=== PATIENT | male | born 1955 | race Caucasian/White ===

== ENCOUNTER 2016-08-14 05:44 | Inpatient (IN) | payer SELFPAY ==
[~2016-08-14] VITALS: Ht 190.5 cm; Wt 102.5 kg
[2016-08-14 07:02] LABS: Basophils # (auto) 0 uL; Basophils % (auto) 0.4 % (0.0-2.0); Eosinophils # (auto) 0.1 uL; Eosinophils % (auto) 1.1 % (0.0-7.0); Hematocrit 41.2 % (41.0-53.0); Hemoglobin 13.7 g/dL (13.5-17.5); Lymphocytes # (auto) 1.6 uL; Lymphocytes % (auto) 17.5 % (10.0-50.0); Mean Corpuscular Hemoglobin 27.5 pg (28.0-32.0); Mean Corpuscular Hgb Conc. 33.2 g/dL (32.0-36.0); Mean Corpuscular Volume 82.9 fL (80.0-100.0); Mean Platelet Volume 7.6 fL (7.4-10.4); Monocytes # (auto) 0.9 uL; Monocytes % (auto) 9.7 % (0.0-12.0); Neutrophils # (auto) 6.4 uL; Neutrophils % (auto) 71.3 % (37.0-80.0); Platelet Count (auto) 239 10^3/uL (140-450); Red Cell Distribution Width 15.4 % (11.6-16.0); White Blood Cell 8.9 10^3/uL (4.4-10.8)
[2016-08-14 07:21] LABS: Albumin 3.6 g/dL (3.4-5.0); Bilirubin, Total 0.7 mg/dL (0.2-1.0); Calcium 8.2 mg/dL (8.5-10.1); Magnesium 2.3 mg/dL (1.6-2.6); Potassium 4.1 mmol/L (3.5-5.1); Total Protein 7.1 g/dL (6.4-8.2)
[2016-08-14 08:00] LABS: INR 1.05 (0.9-1.15); Partial Thromboplastin Time 25.7 sec (22.64-33.71); Prothrombin Time 10.8 sec (9.37-12.3)
[2016-08-14] MEDS ORDERED: SODIUM CHLORIDE 0.9% 1,000 ML IV ONE (08:16)
[2016-08-14] MEDS ORDERED: ONDANSETRON HCL 4 MG/2 ML VIAL IV ONE (08:30)
[2016-08-14] MEDS ORDERED: ASPirin 81 mg TAB PO ONE (08:30)
[2016-08-14] MEDS ORDERED: MORPHINE SULFATE 4 MG/ML SYRG IV ONE (08:30)
[2016-08-14] MEDS ORDERED: IODIXANOL 320MG/ML 100ML BTL IV ONE ×2 (10:29→12:13)
[2016-08-14] MEDS ORDERED: LIDOCAINE 2%HCL (LOCAL ANESTH.) INJ 20ML MDV ONE ×2 (10:30→13:26)
[2016-08-14] MEDS ORDERED: ANGIOMAX 250 MG VIAL IV ONE (11:58)
[2016-08-14] MEDS ORDERED: MIDAZOLAM HCL 1MG/1ML-2 ML VIAL ONE (11:59)
[2016-08-14] MEDS ORDERED: EPTIFIBATIDE INJ (2MG/ML) 10ML VIAL IV ONE (11:59)
[2016-08-14] MEDS ORDERED: SODIUM CHL 0.9% 0 ML ONE (11:59)
[2016-08-14] MEDS ORDERED: fentaNYL CITRATE 100 MCG/2 ML VL ONE (11:59)
[2016-08-14] MEDS ORDERED: HYDROmorphone HCL 2 MG/ML VL ONE (13:24)
[2016-08-14] MEDS ORDERED: MORPHINE SULF INJ 2 MG/ML SYRINGE 1ML IV PRN (13:30)
[2016-08-14] MEDS ORDERED: CHLORHEXIDINE 0.12% ORAL rinse 473ML MT ONE (13:30)
[2016-08-14] MEDS ORDERED: ceFAZolin 1GM 2 GM in D5W 5% 50 ML IV ONE (13:30)
[2016-08-14] MEDS ORDERED: VANCOMYCIN 1GM/250ML D5W 250 ML IV ONE (13:30)
[2016-08-14] MEDS ORDERED: ACCU-CHEK COMFORT CURVE STRIP VI ONE (13:30)
[2016-08-14] MEDS ORDERED: CHLORHEXIDINE 4% TOPICAL soln 473ML TOP ONE (13:30)
[2016-08-14] MEDS ORDERED: NITROGLYCERIN 0.4 MG SL TAB SL PRN (13:30)
[2016-08-14] MEDS ORDERED: HEPARIN SODIUM (PORCINE) 5000 UNITS/ML 1ML VIAL ONE (13:36)
[2016-08-14] MEDS ORDERED: ZOLPIDEM TARTRATE 5 MG TAB PO PRN (14:15)
[2016-08-14] MEDS ORDERED: ALPRAZolam 0.25 MG TAB PO PRN (14:15)
[2016-08-14] MEDS ORDERED: FAMOTIDINE (10MG/ML) 2ML VL IV ONE (14:30)
[2016-08-14] MEDS ORDERED: HEPARIN DRIP/D5W 100UNITS/ML 250 ML IV SCH (14:32)
[2016-08-14 14:40] LABS: Basophils # (auto) 0.1 uL; Basophils % (auto) 0.8 % (0.0-2.0); Eosinophils # (auto) 0.1 uL; Eosinophils % (auto) 1.1 % (0.0-7.0); Hematocrit 39.1 % (41.0-53.0); Lymphocytes # (auto) 2.1 uL; Mean Corpuscular Hgb Conc. 33.3 g/dL (32.0-36.0); Mean Corpuscular Volume 84.1 fL (80.0-100.0); Mean Platelet Volume 7.7 fL (7.4-10.4); Monocytes # (auto) 1.1 uL; Monocytes % (auto) 12.7 % (0.0-12.0); Neutrophils # (auto) 4.9 uL; Neutrophils % (auto) 60.4 % (37.0-80.0); Platelet Count (auto) 198 10^3/uL (140-450); Red Cell Distribution Width 13.9 % (11.6-16.0); White Blood Cell 8.3 10^3/uL (4.4-10.8)
[2016-08-14 14:46] LABS: Partial Thromboplastin Time 60.8 sec (22.64-33.71); Prothrombin Time 11.9 sec (9.37-12.3)
[2016-08-14 14:48] LABS: INR 1.16 (0.9-1.15)
[2016-08-14] MEDS: HEPARIN DRIP/D5W 100UNITS/ML 250 ML IV SCH (15:00)
[2016-08-14 15:01] LABS: Albumin 3.2 g/dL (3.4-5.0); BUN/Creatinine Ratio 8.9; Bilirubin, Total 1.1 mg/dL (0.2-1.0); Calcium 7.9 mg/dL (8.5-10.1); Potassium 4.1 mmol/L (3.5-5.1); Total Protein 6.4 g/dL (6.4-8.2)
[2016-08-14] MEDS ORDERED: MUPIROCIN 2% OINT 22GM TOP SCH ×2 (21:00)
[2016-08-14 21:30] VITALS: BP 121/74
[2016-08-14 22:00] VITALS: BP 127/91
[2016-08-14] MEDS: ATORVASTATIN 20 MG TAB PO SCH (22:00)
[2016-08-14] MEDS: METOPROLOL TARTRATE 25 MG TAB PO SCH (22:00)
[2016-08-14] MEDS: FAMOTIDINE (10MG/ML) 2ML VL IV SCH (22:00)
[2016-08-14 22:09] VITALS: BP 121/74
[2016-08-14 22:38] LABS: BUN/Creatinine Ratio 10.2; Calcium 8.1 mg/dL (8.5-10.1); Potassium 3.9 mmol/L (3.5-5.1)
[2016-08-14 23:30] VITALS: BP 97/64
[2016-08-15] VITALS (75 sets, daily range): BP systolic 85–110; BP diastolic 39–71
[2016-08-15] MEDS: HYDROmorphone HCL 2 MG/ML VL IV PRN ×3 (01:29→22:11)
[2016-08-15 03:46] LABS: Basophils # (auto) 0 uL; Basophils % (auto) 0.3 % (0.0-2.0); Eosinophils # (auto) 0 uL; Eosinophils % (auto) 0.3 % (0.0-7.0); Hematocrit 38.3 % (41.0-53.0); Hemoglobin 12.6 g/dL (13.5-17.5); Lymphocytes # (auto) 1.5 uL; Lymphocytes % (auto) 14.1 % (10.0-50.0); Mean Corpuscular Hemoglobin 27.4 pg (28.0-32.0); Monocytes # (auto) 1.6 uL; Monocytes % (auto) 14.5 % (0.0-12.0); Neutrophils # (auto) 7.7 uL; Neutrophils % (auto) 70.8 % (37.0-80.0); Platelet Count (auto) 214 10^3/uL (140-450); Red Cell Distribution Width 15.1 % (11.6-16.0); White Blood Cell 10.9 10^3/uL (4.4-10.8)
[2016-08-15 03:58] LABS: Calcium 8.2 mg/dL (8.5-10.1); Potassium 3.8 mmol/L (3.5-5.1)
[2016-08-15 04:03] LABS: Partial Thromboplastin Time 60.1 sec (22.64-33.71); Prothrombin Time 11.9 sec (9.37-12.3)
[2016-08-15 04:15] LABS: INR 1.16 (0.9-1.15)
[2016-08-15 09:37] LABS: Partial Thromboplastin Time 43.5 sec (22.64-33.71)
[2016-08-15 09:41] LABS: INR 1.17 (0.9-1.15)
[2016-08-15] MEDS: METOPROLOL TARTRATE 25 MG TAB PO SCH ×2 (10:00→22:00)
[2016-08-15] MEDS: HEPARIN DRIP/D5W 100UNITS/ML 250 ML IV SCH (10:00)
[2016-08-15 10:25] LABS: Urine Bilirubin Negative (Negative); Urine Color Yellow (Yellow); Urine Glucose Normal (Normal); Urine Ketone Negative (Negative); Urine Mucus FEW (None Seen); Urine Nitrite Negative (Negative); Urine RBC 1 /hpf (0 - 3); Urine Sperm PRESENT /hpf (None Seen); Urine Urobilinogen Normal (Negative)
[2016-08-15 10:27] LABS: Urine Blood 1+ /uL (Negative)
[2016-08-15] MEDS: FAMOTIDINE (10MG/ML) 2ML VL IV SCH ×2 (11:22→22:12)
[2016-08-15] MEDS ORDERED: ASPirin 81 mg TAB PO ONE (11:30)
[2016-08-15] MEDS ORDERED: POTASSIUM CHL 10% (20 MEQ/15ML) ORAL SOLN ONE (12:33)
[2016-08-15] MEDS ORDERED: POTASSIUM CHL 10% (20 MEQ/15ML) ORAL SOLN PO ONE (12:45)
[2016-08-15 16:48] LABS: Partial Thromboplastin Time 43.6 sec (22.64-33.71); Prothrombin Time 12.3 sec (9.37-12.3)
[2016-08-15 16:53] LABS: INR 1.19 (0.9-1.15)
[2016-08-15] MEDS: MUPIROCIN 2% OINT 22GM TOP SCH (21:00)
[2016-08-15] MEDS: ATORVASTATIN 20 MG TAB PO SCH (22:12)
[2016-08-15 22:43] LABS: Partial Thromboplastin Time 50.9 sec (22.64-33.71)
[2016-08-15 22:44] LABS: INR 1.23 (0.9-1.15); Prothrombin Time 12.7 sec (9.37-12.3)
[2016-08-15] MEDS ORDERED: CHLORHEXIDINE 0.12% ORAL rinse 473ML MT ONE (23:31)
[2016-08-16] VITALS (70 sets, daily range): BP systolic 23–255; BP diastolic 10–255
[2016-08-16] MEDS: HEPARIN DRIP/D5W 100UNITS/ML 250 ML IV SCH
[2016-08-16] MEDS ORDERED: CHLORHEXIDINE 4% TOPICAL soln 473ML TOP ONE (02:00)
[2016-08-16 04:05] LABS: Basophils # (auto) 0 uL; Basophils % (auto) 0.2 % (0.0-2.0); Eosinophils # (auto) 0.1 uL; Eosinophils % (auto) 0.8 % (0.0-7.0); Hematocrit 38.4 % (41.0-53.0); Hemoglobin 12.4 g/dL (13.5-17.5); Lymphocytes # (auto) 2.4 uL; Lymphocytes % (auto) 22.7 % (10.0-50.0); Mean Corpuscular Hemoglobin 27.1 pg (28.0-32.0); Mean Corpuscular Hgb Conc. 32.3 g/dL (32.0-36.0); Mean Platelet Volume 7.8 fL (7.4-10.4); Monocytes # (auto) 1.4 uL; Monocytes % (auto) 13.8 % (0.0-12.0); Neutrophils # (auto) 6.5 uL; Neutrophils % (auto) 62.5 % (37.0-80.0); Platelet Count (auto) 216 10^3/uL (140-450); Red Cell Distribution Width 14.7 % (11.6-16.0); White Blood Cell 10.5 10^3/uL (4.4-10.8)
[2016-08-16 04:26] LABS: Albumin 2.9 g/dL (3.4-5.0); BUN/Creatinine Ratio 14.6; Bilirubin, Total 0.8 mg/dL (0.2-1.0); Magnesium 2.3 mg/dL (1.6-2.6); Potassium 3.9 mmol/L (3.5-5.1); Total Protein 6.4 g/dL (6.4-8.2)
[2016-08-16 05:05] LABS: INR 1.17 (0.9-1.15)
[2016-08-16] MEDS: HYDROmorphone HCL 2 MG/ML VL IV PRN (05:05)
[2016-08-16] MEDS: MUPIROCIN 2% OINT 22GM TOP SCH (05:16)
[2016-08-16] MEDS ORDERED: CHLORHEXIDINE 0.12% ORAL rinse 473ML MT ONE (06:00)
[2016-08-16] MEDS ORDERED: HEPARIN 1,000 UNITS/ml 1ML VIAL ONE (06:16)
[2016-08-16] MEDS ORDERED: ceFAZolin 1GM VL ONE ×2 (06:16→10:44)
[2016-08-16] MEDS ORDERED: PAPAVERINE HCL 60 MG/2 ML 2ML VIAL ONE (06:16)
[2016-08-16] MEDS ORDERED: NEOMYCIN-BACITRACIN-POLYM 15GM TOP OINT TOP ONE (06:16)
[2016-08-16] MEDS ORDERED: ALBUMIN 25% 300 ML IV ONE (06:48)
[2016-08-16] MEDS ORDERED: PLASMA-LYTE A pH7.4 8,000 ML INJ ONE (06:50)
[2016-08-16] MEDS ORDERED: PHENYLEPHRINE INJ 20 MG in NS 0.9% 248 ML IV ONE (07:00)
[2016-08-16] MEDS ORDERED: VANCOMYCIN 1GM/250ML D5W 250 ML IV ONE (07:00)
[2016-08-16] MEDS ORDERED: ceFAZolin 1GM 2 GM in D5W 5% 50 ML IV ONE (07:00)
[2016-08-16] MEDS ORDERED: EPINEPHrine HCL INJECTION 4 MG in D5W 5% 250 ML IV ONE (07:00)
[2016-08-16] MEDS ORDERED: AMINOCAPROIC ACID 5 GM in SODIUM CHL 0.9% 250 ML IV ONE (07:00)
[2016-08-16] MEDS ORDERED: ACCU-CHEK COMFORT CURVE STRIP VI ONE (07:00)
[2016-08-16] MEDS ORDERED: VASOPRESSIN 50 UNITS in SODIUM CHL 0.9% 247.5 ML IV ONE (07:00)
[2016-08-16] MEDS ORDERED: ceFAZolin 1GM 2 GM in D5W 5% 100 ML IV ONE (07:00)
[2016-08-16] MEDS ORDERED: HEPARIN 30000 UNITS in SODIUM CHLORIDE 0.9% 1000 ML IV ONE (07:00)
[2016-08-16] MEDS ORDERED: AMINOCAPROIC ACID 10 GM in SODIUM CHL 0.9% 100 ML IV ONE (07:00)
[2016-08-16] MEDS ORDERED: InsuLIN R (HUMAN) 100 UNITS in SODIUM CHL 0.9% 99 ML IV ONE (07:00)
[2016-08-16] MEDS ORDERED: fentaNYL CITRATE 10 ML ONE (07:19)
[2016-08-16] MEDS ORDERED: MIDAZOLAM HCL 1MG/1ML-2 ML VIAL ONE (07:19)
[2016-08-16] MEDS ORDERED: ALBUMIN 25% 100 ML IV ONE ×2 (07:23)
[2016-08-16] MEDS ORDERED: ROCURONIUM 10MG/ML 10ML VIAL IV ONE ×2 (07:37→09:38)
[2016-08-16] MEDS ORDERED: VANCOMYCIN HCL 1000 MG VL ONE (07:50)
[2016-08-16] MEDS ORDERED: CALCIUM CHLOR(10%) 100MG/ML 10ML SYRINGE IV ONE ×3 (07:57→13:27)
[2016-08-16] MEDS ORDERED: NITROGLYCERIN 50MG/250ML 250 ML IV ONE ×2 (07:57→12:24)
[2016-08-16] MEDS ORDERED: AMINOCAPROIC ACID 5 GM/20 ML IV ONE (07:58)
[2016-08-16] MEDS ORDERED: PROPOFOL 100 ML IV ONE ×3 (08:49→12:25)
[2016-08-16] MEDS ORDERED: ASPirin 81 mg TAB PO SCH (10:00)
[2016-08-16] MEDS ORDERED: PHENYLEPHRINE IV 250 ML IV ONE ×2 (10:42→12:23)
[2016-08-16] MEDS ORDERED: ADENOSINE 6 MG/2 ML INJ IV ONE ×4 (10:43→13:27)
[2016-08-16] MEDS ORDERED: LIDOCAINE HCL 100 MG/5ML (2%) SYRG INJ IV ONE ×2 (10:44→13:27)
[2016-08-16] MEDS ORDERED: PROPOFOL 200 ML IV ONE (10:44)
[2016-08-16] MEDS ORDERED: POTASSIUM CHL 20MEQ/100ML 200 ML IV ONE (10:44)
[2016-08-16] MEDS ORDERED: PROPOFOL 10 MG/ML 20 ML IV ONE (10:45)
[2016-08-16] MEDS ORDERED: SODIUM BICARBONATE 8.4% INJ 50ML SYRINGE ONE ×3 (11:37→12:24)
[2016-08-16] MEDS ORDERED: AMIODARONE HCL (50 MG/ ML) 3 ML VIAL IV ONE ×2 (11:55→12:23)
[2016-08-16] MEDS ORDERED: AMIODARONE HCL 900 MG in DEXTROSE 500 ML IV STA (12:02)
[2016-08-16] MEDS ORDERED: NICARDIPINE 25MG/250ML BAG KIT 250 ML IV ONE (12:23)
[2016-08-16] MEDS ORDERED: MAGNESIUM SULFATE 1GM/100ML 300 ML IV ONE (12:23)
[2016-08-16] MEDS ORDERED: DOBUTamine 1000MCG/ML 250 ML IV ONE (12:23)
[2016-08-16] MEDS ORDERED: DOPamine 1600MCG/ML 250 ML IV ONE (12:23)
[2016-08-16] MEDS ORDERED: MILRINONE 20MG/100ML 100 ML IV ONE (12:24)
[2016-08-16] MEDS ORDERED: ALBUMIN 5% 750 ML IV ONE (12:24)
[2016-08-16] MEDS ORDERED: NOREPINEPHRINE BITARTRATE 250 ML IV ONE (12:24)
[2016-08-16] MEDS ORDERED: POTASSIUM CHL 20MEQ/100ML 300 ML IV ONE (12:24)
[2016-08-16] MEDS ORDERED: VASOPRESSIN 20 UNIT/ML ONE (12:26)
[2016-08-16] MEDS ORDERED: MANNITOL 20% SOLN 100 gm/500ml BAG IV ONE (13:27)
[2016-08-16] MEDS ORDERED: SODIUM BICARBONATE 8.4 % INJ 50ML VIAL IV ONE (13:27)
[2016-08-16] MEDS ORDERED: PHENYLEPHRINE HCL 10 MG/ML VL IV ONE (13:27)
[2016-08-16] MEDS ORDERED: MAGNESIUM SULF 50% 40 MEQ/10 ML VL IV ONE (13:27)
[2016-08-16] MEDS ORDERED: POTASSIUM CHL 2MEQ/ML 20ML IV ONE (13:27)
[2016-08-16] MEDS ORDERED: AMINOCAPROIC ACID 5 GM/20 ML VL IV ONE (13:27)
[2016-08-16] MEDS ORDERED: DEXAMETHASONE SODIUM PHOSP 120 MG/30ml VIAL IV ONE (13:27)
[2016-08-16] MEDS ORDERED: INSULIN DRIP 100 UNIT/100ML 100 ML IV SCH ×2 (13:57)
[2016-08-16] MEDS ORDERED: NITROGLYCERIN 50MG/250ML 250 ML IV SCH (13:57)
[2016-08-16] MEDS ORDERED: ONDANSETRON HCL 4 MG/2 ML VIAL IV PRN (14:00)
[2016-08-16] MEDS ORDERED: MORPHINE SULFATE 4 MG/ML SYRG IV PRN (14:00)
[2016-08-16] MEDS: ACCU-CHEK COMFORT CURVE STRIP VI SCH ×10 (14:00→23:15)
[2016-08-16] MEDS ORDERED: DEXTROSE (50%) 50ML SYRG IV PRN (14:00)
[2016-08-16] MEDS ORDERED: METOCLOPRAMIDE HCL 5MG/ml INJ 2ml VIAL IV PRN (14:00)
[2016-08-16] MEDS ORDERED: MAGNESIUM SULFATE 1GM/100ML 100 ML IV PRN (14:00)
[2016-08-16] MEDS ORDERED: SODIUM BICARBONATE 8.4% INJ 50ML SYRINGE IV PRN (14:00)
[2016-08-16] MEDS ORDERED: AMIODARONE HCL 150 MG in D5W 5% 100 ML IV ONE (14:00)
[2016-08-16] MEDS ORDERED: AMIODARONE HCL 900 MG in DEXTROSE 500 ML IV SCH (14:07)
[2016-08-16 14:32] LABS: Basophils # (auto) 0 uL; Eosinophils # (auto) 0 uL; Eosinophils % (auto) 0.1 % (0.0-7.0); Hematocrit 32.8 % (41.0-53.0); Hemoglobin 10.9 g/dL (13.5-17.5); Lymphocytes # (auto) 0.4 uL; Lymphocytes % (auto) 2.8 % (10.0-50.0); Mean Corpuscular Hemoglobin 27.4 pg (28.0-32.0); Mean Corpuscular Hgb Conc. 33.1 g/dL (32.0-36.0); Mean Corpuscular Volume 82.8 fL (80.0-100.0); Mean Platelet Volume 7.6 fL (7.4-10.4); Monocytes # (auto) 0.9 uL; Monocytes % (auto) 7.1 % (0.0-12.0); Neutrophils # (auto) 11.6 uL; Platelet Count (auto) 111 10^3/uL (140-450); Red Cell Distribution Width 14.8 % (11.6-16.0); White Blood Cell 12.8 10^3/uL (4.4-10.8)
[2016-08-16 14:55] LABS: Albumin 3.7 g/dL (3.4-5.0); Calcium 8.1 mg/dL (8.5-10.1); Potassium 4.6 mmol/L (3.5-5.1)
[2016-08-16 14:58] LABS: Bilirubin, Total 1.8 mg/dL (0.2-1.0); Total Protein 6.3 g/dL (6.4-8.2)
[2016-08-16] MEDS: ALBUMIN 5% 250 ML IV PRN ×2 (15:00→17:39)
[2016-08-16] MEDS: ceFAZolin 1GM 2 GM in D5W 5% 100 ML IV SCH ×2 (15:00→22:54)
[2016-08-16 15:01] LABS: Magnesium 4.3 mg/dL (1.6-2.6); Phosphorus 1.2 mg/dL (2.6-4.90)
[2016-08-16 15:07] LABS: INR 1.28 (0.9-1.15); Prothrombin Time 13.2 sec (9.37-12.3)
[2016-08-16] MEDS: MILRINONE 20MG/100ML 100 ML IV SCH ×2 (15:31→22:53)
[2016-08-16] MEDS: SODIUM CHLORIDE 0.9% 500 ML IV SCH (15:32)
[2016-08-16] MEDS: PHENYLEPHRINE IV 250 ML IV SCH ×3 (15:42→22:54)
[2016-08-16] MEDS: PANTOPRAZOLE SODIUM 40 MG/10 ML VIAL IV SCH (15:42)
[2016-08-16] MEDS: NICARDIPINE 25MG/250ML BAG KIT 250 ML IV SCH ×3 (15:43→23:57)
[2016-08-16] MEDS: PROPOFOL 100 ML IV SCH ×2 (15:43→23:13)
[2016-08-16] MEDS: NOREPINEPHRINE BITARTRATE 250 ML IV SCH (15:43)
[2016-08-16] MEDS: D5W/SOD CHL 0.45% 1,000 ML IV SCH (16:35)
[2016-08-16] MEDS: MORPHINE SULFATE 4 MG/ML SYRG IV PRN (17:02)
[2016-08-16] MEDS: ACETAMINOPHEN IV 100 ML IV SCH (18:00)
[2016-08-16] MEDS ORDERED: SODIUM PHOSPHATES 20 MEQ in SODIUM CHL 0.9% 100 ML IV ONE (18:45)
[2016-08-16] MEDS: VANCOMYCIN 1GM/250ML D5W 250 ML IV SCH (18:58)
[2016-08-16] MEDS: POTASSIUM CHL 20MEQ/100ML 100 ML IV PRN ×3 (19:17→22:52)
[2016-08-16] MEDS ORDERED: POTASSIUM PHOSPHATE 22 MEQ in SODIUM CHL 0.9% 100 ML IV ONE (19:30)
[2016-08-16] MEDS: AMIODARONE HCL 900 MG in DEXTROSE 500 ML IV SCH (20:00)
[2016-08-16] MEDS: CHLORHEXIDINE 0.12% ORAL rinse 473ML MT SCH (22:00)
[2016-08-16 22:19] LABS: Basophils # (auto) 0 uL; Eosinophils # (auto) 0 uL; Hematocrit 32.5 % (41.0-53.0); Hemoglobin 10.7 g/dL (13.5-17.5); Lymphocytes # (auto) 0.3 uL; Lymphocytes % (auto) 2.5 % (10.0-50.0); Mean Corpuscular Hemoglobin 27.4 pg (28.0-32.0); Mean Corpuscular Hgb Conc. 32.9 g/dL (32.0-36.0); Mean Corpuscular Volume 83.4 fL (80.0-100.0); Mean Platelet Volume 7.8 fL (7.4-10.4); Monocytes # (auto) 0.7 uL; Monocytes % (auto) 6.3 % (0.0-12.0); Neutrophils # (auto) 9.7 uL; Neutrophils % (auto) 91.2 % (37.0-80.0); Platelet Count (auto) 165 10^3/uL (140-450); White Blood Cell 10.7 10^3/uL (4.4-10.8)
[2016-08-16 22:38] LABS: BUN/Creatinine Ratio 12.9; Calcium 7.7 mg/dL (8.5-10.1); Magnesium 3.1 mg/dL (1.6-2.6); Phosphorus 1.7 mg/dL (2.6-4.90); Potassium 3.6 mmol/L (3.5-5.1)
[2016-08-16] MEDS ORDERED: CALCIUM GLUC 4.65 MEQ/10ML 4.65 MEQ in SODIUM CHL 0.9% 50 ML IV ONE (22:45)
[2016-08-17] VITALS (104 sets, daily range): BP systolic 19–187; BP diastolic 11–125
[2016-08-17] MEDS ORDERED: CALCIUM GLUC 4.65 MEQ/10ML IV ONE
[2016-08-17] MEDS: POTASSIUM CHL 20MEQ/100ML 100 ML IV PRN ×3 (00:04→06:29)
[2016-08-17] MEDS: ACETAMINOPHEN IV 100 ML IV SCH ×3 (00:04→12:30)
[2016-08-17] MEDS: ACCU-CHEK COMFORT CURVE STRIP VI SCH ×16 (01:21→21:37)
[2016-08-17] MEDS: PHENYLEPHRINE IV 250 ML IV SCH ×2 (01:22→07:33)
[2016-08-17] MEDS: PROPOFOL 100 ML IV SCH ×2 (02:24→09:08)
[2016-08-17] MEDS: MORPHINE SULFATE 4 MG/ML SYRG IV PRN ×3 (04:16→13:59)
[2016-08-17 04:57] LABS: Basophils # (auto) 0 uL; Basophils % (auto) 0.2 % (0.0-2.0); Eosinophils # (auto) 0 uL; Hematocrit 32.1 % (41.0-53.0); Hemoglobin 10.6 g/dL (13.5-17.5); Lymphocytes # (auto) 0.4 uL; Lymphocytes % (auto) 2.8 % (10.0-50.0); Mean Corpuscular Hemoglobin 27.4 pg (28.0-32.0); Mean Corpuscular Hgb Conc. 33.1 g/dL (32.0-36.0); Mean Corpuscular Volume 82.8 fL (80.0-100.0); Monocytes # (auto) 0.6 uL; Monocytes % (auto) 4.2 % (0.0-12.0); Neutrophils # (auto) 13.7 uL; Neutrophils % (auto) 92.8 % (37.0-80.0); Platelet Count (auto) 173 10^3/uL (140-450); Red Cell Distribution Width 15.1 % (11.6-16.0); White Blood Cell 14.7 10^3/uL (4.4-10.8)
[2016-08-17] MEDS: NICARDIPINE 25MG/250ML BAG KIT 250 ML IV SCH ×2 (04:57→09:32)
[2016-08-17 05:14] LABS: BUN/Creatinine Ratio 15.5; Calcium 7.7 mg/dL (8.5-10.1); Magnesium 2.8 mg/dL (1.6-2.6)
[2016-08-17 05:37] LABS: Phosphorus 2.2 mg/dL (2.6-4.90)
[2016-08-17] MEDS: ceFAZolin 1GM 2 GM in D5W 5% 100 ML IV SCH ×3 (05:47→22:35)
[2016-08-17] MEDS ORDERED: ALBUMIN 25% 100 ML IV ONE (06:45)
[2016-08-17] MEDS: VANCOMYCIN 1GM/250ML D5W 250 ML IV SCH ×2 (07:00→19:32)
[2016-08-17] MEDS: MILRINONE 20MG/100ML 100 ML IV SCH (07:49)
[2016-08-17] MEDS: D5W/SOD CHL 0.45% 1,000 ML IV SCH (08:12)
[2016-08-17] MEDS ORDERED: SODIUM CHLORIDE 0.9% 1,000 ML IV SCH (08:30)
[2016-08-17] MEDS ORDERED: CALCIUM GLUC 4.65 MEQ/10ML 4.65 MEQ in SODIUM CHL 0.9% 50 ML IV ONE (09:00)
[2016-08-17] MEDS ORDERED: POTASSIUM PHOSPHATE 22 MEQ in SODIUM CHL 0.9% 100 ML IV ONE (09:00)
[2016-08-17] MEDS: AMIODARONE HCL 900 MG in DEXTROSE 500 ML IV SCH (09:33)
[2016-08-17 09:41] LABS: Magnesium 2.8 mg/dL (1.6-2.6); Potassium 4.4 mmol/L (3.5-5.1)
[2016-08-17] MEDS: PANTOPRAZOLE SODIUM 40 MG/10 ML VIAL IV SCH (10:00)
[2016-08-17] MEDS: CHLORHEXIDINE 0.12% ORAL rinse 473ML MT SCH ×2 (10:30→22:29)
[2016-08-17] MEDS: NOREPINEPHRINE BITARTRATE 250 ML IV SCH (13:57)
[2016-08-17] MEDS ORDERED: HYDROcodone-ACET 7.5/325MG TAB PO PRN (16:30)
[2016-08-17] MEDS ORDERED: DEXTROSE (50%) 50ML SYRG IV PRN (16:30)
[2016-08-17] MEDS ORDERED: POTASSIUM CHL 20MEQ/100ML 100 ML IV PRN (16:30)
[2016-08-17] MEDS ORDERED: POTASSIUM CHL 10% (20 MEQ/15ML) ORAL SOLN PO PRN (16:30)
[2016-08-17] MEDS ORDERED: hydrALAZINE HCL 20 MG/ML VL IV PRN (16:45)
[2016-08-17] MEDS ORDERED: fentaNYL CITRATE 100 MCG/2 ML VL IV PRN (17:00)
[2016-08-17] MEDS: InsuLIN REG 1unit/0.01ml Soln (100units/ml) SC SCH ×2 (18:00→21:56)
[2016-08-17] MEDS ORDERED: MILK OF MAGNESIA 30ML SUSP PO PRN (18:00)
[2016-08-17] MEDS: MORPHINE SULF INJ 2 MG/ML SYRINGE 1ML IV PRN ×2 (18:34→22:34)
[2016-08-17] MEDS: SODIUM CHLORIDE 0.9% 500 ML IV SCH (18:39)
[2016-08-17] MEDS: IPRATROPIUM BROM 0.5 MG/2.5ML INH SOL NEB PRN ×2 (19:25→22:38)
[2016-08-17] MEDS: ACETYLCYSTEINE 10 %(100MG/ML) SOL 4ML NEB SCH (19:26)
[2016-08-17] MEDS ORDERED: FUROSEMIDE 20 MG/2 ML VIAL IV PRN (20:15)
[2016-08-17] MEDS: ACETAMINOPHEN 325 MG TAB PO PRN (21:36)
[2016-08-17] MEDS: ATORVASTATIN 20 MG TAB PO SCH (21:36)
[2016-08-17] MEDS: DOCUSATE SOD 100 MG CAP PO SCH (21:36)
[2016-08-17] MEDS ORDERED: METOPROLOL TARTRATE 25 MG TAB PO SCH (22:00)
[2016-08-17] MEDS ORDERED: ASPirin-EC 81 mg tab PO ONE (22:00)
[2016-08-17] MEDS ORDERED: FUROSEMIDE 40 MG TAB PO ONE (22:00)
[2016-08-17 22:20] LABS: Hematocrit 28.8 % (41.0-53.0); Hemoglobin 9.6 g/dL (13.5-17.5); Mean Corpuscular Hemoglobin 27.8 pg (28.0-32.0); Mean Corpuscular Hgb Conc. 33.5 g/dL (32.0-36.0); Mean Platelet Volume 9.6 fL (7.4-10.4); Platelet Count (auto) 149 10^3/uL (140-450); Red Cell Distribution Width 15.6 % (11.6-16.0); SUSPECT VIEW TRANSMISSION; White Blood Cell 14.7 10^3/uL (4.4-10.8)
[2016-08-17 22:23] LABS: Metamyelocytes % 0; Myelocytes % 0; Promyelocytes % 0; Reactive Lymphocytes 0
[2016-08-17 22:35] LABS: Platelet Estimate Adequate
[2016-08-18] VITALS (82 sets, daily range): BP systolic 9–122; BP diastolic -11–86
[2016-08-18] MEDS ORDERED: MORPHINE SULFATE 4 MG/ML SYRG IV PRN ×2 (00:45)
[2016-08-18] MEDS: ACCU-CHEK COMFORT CURVE STRIP VI SCH ×6 (01:49→22:01)
[2016-08-18] MEDS: InsuLIN REG 1unit/0.01ml Soln (100units/ml) SC SCH ×6 (01:49→22:00)
[2016-08-18] MEDS: AMIODARONE HCL 900 MG in DEXTROSE 500 ML IV SCH (03:03)
[2016-08-18] MEDS ORDERED: NITROGLYCERIN 0.4MG/HR TOPICAL PATCH TD ONE (03:45)
[2016-08-18 04:20] LABS: Basophils # (auto) 0 uL; Basophils % (auto) 0.1 % (0.0-2.0); Eosinophils # (auto) 0 uL; Hematocrit 27.8 % (41.0-53.0); Hemoglobin 9.2 g/dL (13.5-17.5); Lymphocytes # (auto) 1.6 uL; Lymphocytes % (auto) 11.9 % (10.0-50.0); Mean Corpuscular Hemoglobin 27.7 pg (28.0-32.0); Mean Corpuscular Hgb Conc. 33.2 g/dL (32.0-36.0); Mean Corpuscular Volume 83.5 fL (80.0-100.0); Mean Platelet Volume 9.4 fL (7.4-10.4); Monocytes # (auto) 1.4 uL; Monocytes % (auto) 10.1 % (0.0-12.0); Neutrophils # (auto) 10.5 uL; Neutrophils % (auto) 77.9 % (37.0-80.0); Platelet Count (auto) 141 10^3/uL (140-450); Red Cell Distribution Width 15.3 % (11.6-16.0); White Blood Cell 13.5 10^3/uL (4.4-10.8)
[2016-08-18 04:38] LABS: Albumin 3.2 g/dL (3.4-5.0); BUN/Creatinine Ratio 21.8; Calcium 7.7 mg/dL (8.5-10.1); Magnesium 2.4 mg/dL (1.6-2.6); Potassium 4.8 mmol/L (3.5-5.1)
[2016-08-18] MEDS ORDERED: CALCIUM GLUC 4.65 MEQ/10ML 4.65 MEQ in SODIUM CHL 0.9% 50 ML IV ONE (05:15)
[2016-08-18 05:21] LABS: Bilirubin, Total 0.9 mg/dL (0.2-1.0)
[2016-08-18] MEDS ORDERED: CALCIUM GLUC 4.65 MEQ/10ML IV ONE (05:23)
[2016-08-18] MEDS: FUROSEMIDE 40 MG TAB PO SCH ×2 (06:10→18:30)
[2016-08-18] MEDS: ceFAZolin 1GM 2 GM in D5W 5% 100 ML IV SCH (06:11)
[2016-08-18] MEDS: VANCOMYCIN 1GM/250ML D5W 250 ML IV SCH (06:42)
[2016-08-18] MEDS ORDERED: DEXTROSE (50%) 50ML SYRG IV PRN (07:00)
[2016-08-18] MEDS: SODIUM CHLORIDE 0.9% 1,000 ML IV SCH (07:45)
[2016-08-18] MEDS: ACETYLCYSTEINE 10 %(100MG/ML) SOL 4ML NEB SCH ×3 (08:16→18:52)
[2016-08-18] MEDS: IPRATROPIUM BROM 0.5 MG/2.5ML INH SOL NEB SCH ×3 (08:16→18:52)
[2016-08-18] MEDS ORDERED: SODIUM CHLORIDE 0.9% 1,000 ML IV SCH (08:30)
[2016-08-18] MEDS: AMIODARONE HCL 200 MG TAB PO SCH ×2 (08:31→19:58)
[2016-08-18] MEDS: MORPHINE SULFATE 4 MG/ML SYRG IV PRN ×5 (08:44→22:00)
[2016-08-18] MEDS ORDERED: METOPROLOL TARTRATE 25 MG TAB PO SCH (10:00)
[2016-08-18] MEDS ORDERED: NITROGLYCERIN 0.4MG/HR TOPICAL PATCH TD SCH (10:00)
[2016-08-18] MEDS ORDERED: ENOXAPARIN SOD 30 MG/0.3 ML SYRINGE SC SCH (10:00)
[2016-08-18] MEDS ORDERED: PANTOPRAZOLE SODIUM 40 MG/10 ML VIAL IV SCH (10:00)
[2016-08-18] MEDS ORDERED: ASPirin 81 mg TAB PO SCH (10:00)
[2016-08-18] MEDS: CHLORHEXIDINE 0.12% ORAL rinse 473ML MT SCH ×2 (10:07→22:00)
[2016-08-18] MEDS: ASPirin-EC 81 mg tab PO SCH (10:07)
[2016-08-18] MEDS: DOCUSATE SOD 100 MG CAP PO SCH ×2 (10:07→21:51)
[2016-08-18] MEDS: POTASSIUM CHL 20 Meq TABLET PO SCH (10:08)
[2016-08-18] MEDS: METOPROLOL TARTRATE 25 MG TAB PO SCH ×2 (10:08→22:13)
[2016-08-18] MEDS: ENOXAPARIN SOD 40 MG/0.4 ML SYRINGE SC SCH (10:08)
[2016-08-18] MEDS: HYDROcodone-ACET 10/325MG TAB PO PRN ×2 (10:09→18:31)
[2016-08-18] MEDS: FERROUS SULFATE 325 MG TAB PO SCH ×2 (10:50→21:51)
[2016-08-18] MEDS ORDERED: ALPRAZolam 0.5 MG TAB PO PRN (12:00)
[2016-08-18] MEDS ORDERED: PROPRANOLOL HCL 1 MG/ML VIAL IV ONE (13:30)
[2016-08-18] MEDS: SODIUM CHLORIDE 0.9% 500 ML IV SCH (13:39)
[2016-08-18 13:58] LABS: Hematocrit 27.8 % (41.0-53.0); Hemoglobin 9.3 g/dL (13.5-17.5)
[2016-08-18] MEDS: ACETAMINOPHEN 325 MG TAB PO PRN (14:00)
[2016-08-18] MEDS ORDERED: PROPRANOLOL HCL 1 MG/ML VIAL IV PRN (14:45)
[2016-08-18] MEDS: ATORVASTATIN 20 MG TAB PO SCH (21:51)
[2016-08-19] VITALS (47 sets, daily range): BP systolic 91–118; BP diastolic 56–78
[2016-08-19] MEDS: HYDROcodone-ACET 10/325MG TAB PO PRN ×4 (00:02→19:49)
[2016-08-19] MEDS: AMIODARONE HCL 900 MG in DEXTROSE 500 ML IV SCH (03:03)
[2016-08-19 04:25] LABS: Basophils # (auto) 0 uL; Basophils % (auto) 0.2 % (0.0-2.0); Eosinophils # (auto) 0 uL; Eosinophils % (auto) 0.5 % (0.0-7.0); Hematocrit 28.7 % (41.0-53.0); Hemoglobin 9.4 g/dL (13.5-17.5); Lymphocytes # (auto) 2.2 uL; Lymphocytes % (auto) 20.5 % (10.0-50.0); Mean Corpuscular Hemoglobin 27.5 pg (28.0-32.0); Mean Corpuscular Hgb Conc. 32.9 g/dL (32.0-36.0); Mean Corpuscular Volume 83.6 fL (80.0-100.0); Mean Platelet Volume 8.7 fL (7.4-10.4); Monocytes # (auto) 1.1 uL; Monocytes % (auto) 9.9 % (0.0-12.0); Neutrophils # (auto) 7.3 uL; Neutrophils % (auto) 68.9 % (37.0-80.0); Platelet Count (auto) 183 10^3/uL (140-450); Red Cell Distribution Width 15.2 % (11.6-16.0); White Blood Cell 10.6 10^3/uL (4.4-10.8)
[2016-08-19 04:41] LABS: Albumin 3.1 g/dL (3.4-5.0); BUN/Creatinine Ratio 25.3; Calcium 7.7 mg/dL (8.5-10.1)
[2016-08-19 04:43] LABS: Total Protein 6.4 g/dL (6.4-8.2)
[2016-08-19] MEDS: FUROSEMIDE 40 MG TAB PO SCH ×2 (06:00→17:41)
[2016-08-19] MEDS: IPRATROPIUM BROM 0.5 MG/2.5ML INH SOL NEB SCH ×5 (06:44→21:53)
[2016-08-19] MEDS: ACETYLCYSTEINE 10 %(100MG/ML) SOL 4ML NEB SCH ×3 (06:44→21:54)
[2016-08-19] MEDS: ACCU-CHEK COMFORT CURVE STRIP VI SCH ×4 (06:49→22:01)
[2016-08-19] MEDS: InsuLIN REG 1unit/0.01ml Soln (100units/ml) SC SCH ×4 (06:49→22:00)
[2016-08-19] MEDS: SODIUM CHLORIDE 0.9% 1,000 ML IV SCH (07:18)
[2016-08-19] MEDS ORDERED: CALCIUM GLUC 4.65 MEQ/10ML 4.65 MEQ in SODIUM CHL 0.9% 50 ML IV ONE (08:00)
[2016-08-19] MEDS ORDERED: POTASSIUM CHL 10% (20 MEQ/15ML) ORAL SOLN PO PRN (08:00)
[2016-08-19] MEDS ORDERED: MAGNESIUM SULFATE 1GM/100ML 100 ML IV ONE (08:00)
[2016-08-19] MEDS: AMIODARONE HCL 200 MG TAB PO SCH ×2 (08:03→19:49)
[2016-08-19] MEDS: MORPHINE SULFATE 4 MG/ML SYRG IV PRN ×2 (08:03→22:03)
[2016-08-19] MEDS: CHLORHEXIDINE 0.12% ORAL rinse 473ML MT SCH ×2 (10:00→22:02)
[2016-08-19] MEDS: FERROUS SULFATE 325 MG TAB PO SCH ×2 (10:54→22:01)
[2016-08-19] MEDS: NITROGLYCERIN 0.4MG/HR TOPICAL PATCH TD SCH (10:55)
[2016-08-19] MEDS: METOPROLOL TARTRATE 25 MG TAB PO SCH ×2 (10:55→22:01)
[2016-08-19] MEDS: ASPirin-EC 81 mg tab PO SCH (10:56)
[2016-08-19] MEDS: ENOXAPARIN SOD 40 MG/0.4 ML SYRINGE SC SCH (10:56)
[2016-08-19] MEDS: DOCUSATE SOD 100 MG CAP PO SCH ×2 (10:56→22:00)
[2016-08-19] MEDS: POTASSIUM CHL 20 Meq TABLET PO SCH (10:56)
[2016-08-19] MEDS: PANTOPRAZOLE 40 MG TAB PO SCH (10:56)
[2016-08-19] MEDS: SODIUM CHLORIDE 0.9% 500 ML IV SCH (14:06)
[2016-08-19] MEDS: cefTRIAXone 1GM/50ML D5W 50 ML IV SCH (17:20)
[2016-08-19] MEDS: ATORVASTATIN 20 MG TAB PO SCH (22:00)
[2016-08-20] VITALS (24 sets, daily range): BP systolic 88–110; BP diastolic 47–78
[2016-08-20] MEDS: MORPHINE SULFATE 4 MG/ML SYRG IV PRN ×2 (01:11→10:27)
[2016-08-20] MEDS: AMIODARONE HCL 900 MG in DEXTROSE 500 ML IV SCH (03:03)
[2016-08-20 04:17] LABS: Albumin 2.8 g/dL (3.4-5.0); BUN/Creatinine Ratio 32.9; Bilirubin, Total 0.9 mg/dL (0.2-1.0); Calcium 8.2 mg/dL (8.5-10.1); Magnesium 2.3 mg/dL (1.6-2.6); Potassium 4.3 mmol/L (3.5-5.1)
[2016-08-20] MEDS: FUROSEMIDE 40 MG TAB PO SCH (05:39)
[2016-08-20] MEDS: HYDROcodone-ACET 10/325MG TAB PO PRN ×3 (06:15→20:45)
[2016-08-20] MEDS: ACCU-CHEK COMFORT CURVE STRIP VI SCH ×2 (06:40→11:59)
[2016-08-20] MEDS: InsuLIN REG 1unit/0.01ml Soln (100units/ml) SC SCH ×2 (06:40→11:30)
[2016-08-20] MEDS: IPRATROPIUM BROM 0.5 MG/2.5ML INH SOL NEB SCH ×4 (07:12→19:54)
[2016-08-20] MEDS: ACETYLCYSTEINE 10 %(100MG/ML) SOL 4ML NEB SCH ×3 (07:12→19:55)
[2016-08-20] MEDS: AMIODARONE HCL 200 MG TAB PO SCH ×2 (08:07→20:46)
[2016-08-20] MEDS ORDERED: FERROUS SULFATE 325 MG TAB PO ONE (10:00)
[2016-08-20] MEDS: METOPROLOL TARTRATE 25 MG TAB PO SCH ×2 (10:25→20:45)
[2016-08-20] MEDS: POTASSIUM CHL 20 Meq TABLET PO SCH (10:25)
[2016-08-20] MEDS: PANTOPRAZOLE 40 MG TAB PO SCH (10:25)
[2016-08-20] MEDS: ASPirin-EC 81 mg tab PO SCH (10:26)
[2016-08-20] MEDS: DOCUSATE SOD 100 MG CAP PO SCH ×2 (10:26→20:45)
[2016-08-20] MEDS: FERROUS SULFATE 325 MG TAB PO SCH ×2 (10:26→20:46)
[2016-08-20] MEDS: ENOXAPARIN SOD 40 MG/0.4 ML SYRINGE SC SCH (10:27)
[2016-08-20] MEDS: NITROGLYCERIN 0.4MG/HR TOPICAL PATCH TD SCH (10:27)
[2016-08-20] MEDS: CHLORHEXIDINE 0.12% ORAL rinse 473ML MT SCH ×2 (10:28→20:46)
[2016-08-20] MEDS: cefTRIAXone 1GM/50ML D5W 50 ML IV SCH (18:41)
[2016-08-20] MEDS: ATORVASTATIN 20 MG TAB PO SCH (20:44)
[2016-08-21] MEDS: HYDROcodone-ACET 10/325MG TAB PO PRN ×3 (02:53→14:10)
[2016-08-21 04:54] VITALS: BP 93/57
[2016-08-21] MEDS: ACETYLCYSTEINE 10 %(100MG/ML) SOL 4ML NEB SCH ×2 (07:37→14:28)
[2016-08-21] MEDS: IPRATROPIUM BROM 0.5 MG/2.5ML INH SOL NEB SCH ×3 (07:37→14:28)
[2016-08-21] MEDS: AMIODARONE HCL 200 MG TAB PO SCH (08:01)
[2016-08-21 09:00] VITALS: BP 97/61
[2016-08-21 09:18] VITALS: BP 93/57
[2016-08-21] MEDS: ASPirin-EC 81 mg tab PO SCH (09:43)
[2016-08-21] MEDS: FERROUS SULFATE 325 MG TAB PO SCH (09:43)
[2016-08-21] MEDS: DOCUSATE SOD 100 MG CAP PO SCH (09:43)
[2016-08-21] MEDS: PANTOPRAZOLE 40 MG TAB PO SCH (09:43)
[2016-08-21] MEDS: POTASSIUM CHL 20 Meq TABLET PO SCH (09:43)
[2016-08-21] MEDS: METOPROLOL TARTRATE 25 MG TAB PO SCH (09:44)
[2016-08-21] MEDS: ENOXAPARIN SOD 40 MG/0.4 ML SYRINGE SC SCH (09:44)
[2016-08-21] MEDS: NITROGLYCERIN 0.4MG/HR TOPICAL PATCH TD SCH (09:44)
[2016-08-21] MEDS ORDERED: AMI200T PO (09:57)
[2016-08-21] MEDS ORDERED: ATOR20TA50 PO (09:57)
[2016-08-21] MEDS ORDERED: FER325T PO (09:57)
[2016-08-21] MEDS ORDERED: ASP81EC PO (09:57)
[2016-08-21] MEDS ORDERED: MET25T PO (09:57)
[2016-08-21] MEDS: CHLORHEXIDINE 0.12% ORAL rinse 473ML MT SCH (11:01)
[2016-08-21] MEDS ORDERED: LEVO500T3 PO (11:11)
[2016-08-21 12:19] VITALS: BP 101/67
[2016-08-21 13:00] VITALS: BP 101/67
[2016-08-21 15:06] VITALS: BP 101/67
== END 2016-08-21 16:05 | disposition home or self-care (01) | DRG 234 ==
LOC: ER 05:50 → ICU CENTRL 05:51 → ICU WEST 20:49 → TELE-EAST 08-20 16:01
PROVIDERS: ADMIT Internal Medicine; ATTEND Internal Medicine
PROC: 4A023N7 Measurement of Cardiac Sampling and Pressure, Left Heart, Percutaneous Approach (ICD-10-PCS; principal; 2016-08-14)
PROC: B2111ZZ Fluoroscopy of Multiple Coronary Arteries using Low Osmolar Contrast (ICD-10-PCS; 2016-08-14)
PROC: B2151ZZ Fluoroscopy of Left Heart using Low Osmolar Contrast (ICD-10-PCS; 2016-08-14)
PROC: 02100Z9 Bypass Coronary Artery, One Artery from Left Internal Mammary, Open Approach (ICD-10-PCS; 2016-08-17)
PROC: 021109W Bypass Coronary Artery, Two Arteries from Aorta with Autologous Venous Tissue, Open Approach (ICD-10-PCS; 2016-08-17)
PROC: 06BP3ZZ Excision of Right Saphenous Vein, Percutaneous Approach (ICD-10-PCS; 2016-08-17)
PROC: 5A1221Z Performance of Cardiac Output, Continuous (ICD-10-PCS; 2016-08-17)
PROC: B246ZZ4 Ultrasonography of Right and Left Heart, Transesophageal (ICD-10-PCS; 2016-08-17)
DX: I21.4 Non-ST elevation (NSTEMI) myocardial infarction (principal); I47.2 Ventricular tachycardia; I25.110 Atherosclerotic heart disease of native coronary artery with unstable angina pectoris; I20.0 Unstable angina; F17.210 Nicotine dependence, cigarettes, uncomplicated; J44.9 Chronic obstructive pulmonary disease, unspecified; D64.9 Anemia, unspecified; I25.2 Old myocardial infarction; Z86.718 Personal history of other venous thrombosis and embolism; Z86.72 Personal history of thrombophlebitis; Z95.1 Presence of aortocoronary bypass graft
CPT/HCPCS: 36415; 36600; 71010; 80048; 80053; 80061; 81001; 82805; 82962; 83036; 83735; 84100; 84132; 84443; 84484; 85007; 85014; 85018; 85025; 85027; 85379; 85576; 85610; 85730; 86850; 86900; 86901; 86920; 87070; 87077; 87081; 87186; 87205; 93005; 93306; 93886; 93970; 93971; 94002; 94003; 94640; 94660; 96361; 96365; 96375; C1751; C1768; C9113; J0131; J0153; J0171; J0690; J0696; J1100; J1642; J1644; J1815; J2250; J2405; J2440; J2704; J3480; J3490; J7060; Q9967

== ENCOUNTER → 2016-09-04 | Outpatient (CLI) | payer MEDICAID ==
[~2016-09-04] MED LIST: AMI200T PO; ASP81EC PO; ATOR20TA50 PO; FER325T PO; LEVO500T3 PO; MET25T PO
[2016-09-04 13:10] LABS: BUN/Creatinine Ratio 18.8; Calcium 8.7 mg/dL (8.5-10.1); Potassium 4.4 mmol/L (3.5-5.1)
[2016-09-04 13:50] LABS: Basophils # (auto) 0.1 uL; Eosinophils # (auto) 0.2 uL; Eosinophils % (auto) 3.2 % (0.0-7.0); Hematocrit 35.1 % (41.0-53.0); Hemoglobin 11.1 g/dL (13.5-17.5); Lymphocytes # (auto) 2.3 uL; Lymphocytes % (auto) 34.1 % (10.0-50.0); Mean Corpuscular Hgb Conc. 31.7 g/dL (32.0-36.0); Mean Corpuscular Volume 85.1 fL (80.0-100.0); Mean Platelet Volume 8.1 fL (7.4-10.4); Monocytes # (auto) 0.5 uL; Monocytes % (auto) 8.2 % (0.0-12.0); Neutrophils # (auto) 3.6 uL; Neutrophils % (auto) 53.5 % (37.0-80.0); Platelet Count (auto) 559 10^3/uL (140-450); White Blood Cell 6.7 10^3/uL (4.4-10.8)
== END | disposition home or self-care (01) ==
LOC: LAB 12:26
PROVIDERS: ATTEND Thoracic Surgery (Cardiothoracic Vascular Surgery)
DX: I25.110 Atherosclerotic heart disease of native coronary artery with unstable angina pectoris (principal)
CPT/HCPCS: 36415; 80048; 85025; 85049

== ENCOUNTER → 2016-09-04 | Outpatient (CLI) | payer MEDICAID | END | disposition home or self-care (01) | LOC: XYW 13:25 | PROVIDERS: ATTEND Thoracic Surgery (Cardiothoracic Vascular Surgery) | DX: I25.110 Atherosclerotic heart disease of native coronary artery with unstable angina pectoris (principal) | CPT/HCPCS: 93306 ==

== ENCOUNTER 2016-12-25 23:45 | Emergency (ER) | payer MEDICAID ==
[~2016-12-25] VITALS: Ht 190.5 cm; Wt 106.6 kg
[2016-12-26 00:54] LABS: Basophils # (auto) 0.2 uL; Basophils % (auto) 1.8 % (0.0-2.0); DEFINITIVE VIEW TRANSMISSION; Eosinophils # (auto) 0.2 uL; Eosinophils % (auto) 2.5 % (0.0-7.0); Hematocrit 41.8 % (41.0-53.0); Hemoglobin 13.5 g/dL (13.5-17.5); Lymphocytes # (auto) 2.8 uL; Lymphocytes % (auto) 32.1 % (10.0-50.0); Mean Corpuscular Hemoglobin 26.4 pg (28.0-32.0); Mean Corpuscular Hgb Conc. 32.3 g/dL (32.0-36.0); Mean Corpuscular Volume 81.7 fL (80.0-100.0); Mean Platelet Volume 7.4 fL (7.4-10.4); Monocytes % (auto) 11.8 % (0.0-12.0); Neutrophils # (auto) 4.6 uL; Neutrophils % (auto) 51.8 % (37.0-80.0); Platelet Count (auto) 328 10^3/uL (140-450); Red Cell Distribution Width 13.6 % (11.6-16.0); White Blood Cell 8.8 10^3/uL (4.4-10.8)
[2016-12-26 01:14] LABS: Albumin 3.5 g/dL (3.4-5.0); Calcium 8.3 mg/dL (8.5-10.1); Potassium 4.2 mmol/L (3.5-5.1)
[2016-12-26 01:21] LABS: BUN/Creatinine Ratio 9.3; Bilirubin, Total 0.7 mg/dL (0.2-1.0); INR 1.33 (0.9-1.15); Prothrombin Time 14.4 sec (9.37-12.3); Total Protein 6.8 g/dL (6.4-8.2)
[2016-12-26 04:58] VITALS: BP 114/76
== END 2016-12-26 05:53 | disposition home or self-care (01) ==
LOC: ER 23:45
DX: M79.89 Other specified soft tissue disorders (principal); R20.0 Anesthesia of skin; E78.5 Hyperlipidemia, unspecified; I10 Essential (primary) hypertension; I82.509 Chronic embolism and thrombosis of unspecified deep veins of unspecified lower extremity; Z95.1 Presence of aortocoronary bypass graft; Z79.01 Long term (current) use of anticoagulants
CPT/HCPCS: 36415; 80053; 84484; 85025; 85610; 85730; 93971; 94761

== ENCOUNTER → 2017-08-28 | Outpatient (CLI) | payer MEDICAID ==
[~2017-08-28] MED LIST changes: +LEVO500T21 PO; -LEVO500T3 PO
== END | disposition home or self-care (01) ==
LOC: XYW 08:40
PROVIDERS: ATTEND Internal Medicine Cardiovascular Disease
DX: Z01.818 Encounter for other preprocedural examination (principal); Z95.1 Presence of aortocoronary bypass graft
CPT/HCPCS: 93017